=== PATIENT | male | born 1985 ===

== ENCOUNTER 2017-01-01 14:41 | Emergency (ER) | payer MEDICAID, OTHER ==
[2017-01-01 14:56] VITALS: BP 120/77; PULSE 64; RESP 18; TEMP 97.8; O2SAT 99
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
--- NOTE | 2017-01-01 16:55 | RAD ---
HISTORY: direct injury via fall on stairs COMPARISON: No prior. FINDINGS: BONES: Alignment maintained. No fracture. DISC SPACES: Normal. SOFT TISSUES: Normal. OTHER FINDINGS: None. IMPRESSION: No acute findings related to/accounting for the clinical presentation. Please note: No preliminary report/ innterpretation of this examination provided by emergency department personnel.
== END 2017-01-01 17:26 | disposition home or self-care (01) ==
LOC: H.ER 14:41
DX: M54.9 Dorsalgia, unspecified (principal); X50.9XXA Other and unspecified overexertion or strenuous movements or postures, initial encounter; Y92.89 Other specified places as the place of occurrence of the external cause

== ENCOUNTER 2017-08-01 01:15 | Emergency (ER) | payer OTHER ==
--- NOTE | 2017-08-01 02:36 | ED PDOC ---
HPI: Psych/Substance Abuse Time Seen by Provider: 08/01/17 01:25 Chief Complaint (Nursing): Psychiatric Evaluation Chief Complaint (Provider): Psychiatric Evaluation History Per: Patient History/Exam Limitations: no limitations Onset/Duration Of Symptoms: Hrs Current Symptoms Are (Timing): Still Present Suicide/Self Injury Attempted (Context): None Modifying Factor(s): Alcohol Severity: None Associated Symptoms: Anxiety, Agitation Additional Complaint(s): 32 year old male with unspecified psychiatric history brought to the ED by [place] police after being found sleeping on the stoop outside his family's home. Patient admits to drinking but presents with no other complaints. Denies suicidal ideation and homicidal ideation. Past Medical History Reviewed: Historical Data, Nursing Documentation, Vital Signs - Medical History PMH: Asthma - Surgical History Surgical History: No Surg Hx - Family History Family History: States: Unknown Family Hx - Home Medications Home Medications: Ambulatory Orders Medication Instructions Recorded Cyclobenzaprine [Cyclobenzaprine 10 mg PO Q8 PRN #30 tab 01/07/16 HCl] Naproxen [Naprosyn] 500 mg PO BID PRN #30 tab 01/07/16 Cyclobenzaprine [Cyclobenzaprine 10 mg PO BID #14 tab 01/01/17 HCl] Ibuprofen [Motrin] 400 mg PO Q6 #30 tab 01/01/17 - Allergies Allergies/Adverse Reactions: Allergies Allergy/AdvReac Type Severity Reaction Status Date / Time shellfish derived Allergy RASH Verified 01/01/17 15:55 Review of Systems ROS Statement: Except As Marked, All Systems Reviewed And Found Negative Psych: Positive for: Other (Agitated) Physical Exam - Reviewed Nursing Documentation Reviewed: Yes Vital Signs Reviewed: Yes - Physical Exam Appears: Positive for: Non-toxic, No Acute Distress Head Exam: Positive for: ATRAUMATIC, NORMOCEPHALIC Skin: Positive for: Normal Color, Warm, Dry Eye Exam: Positive for: Normal appearance, EOMI, PERRL Neck: Positive for: Normal, Painless ROM, Supple Cardiovascular/Chest: Positive for: Regular Rate, Rhythm. Negative for: Murmur Respiratory: Positive for: Normal Breath Sounds. Negative for: Respiratory Distress Gastrointestinal/Abdominal: Positive for: Normal Exam, Soft. Negative for: Tenderness Back: Positive for: Normal Inspection. Negative for: L CVA Tenderness, R CVA Tenderness, Vertebral Tenderness Extremity: Positive for: Normal ROM. Negative for: Pedal Edema, Deformity Neurologic/Psych: Positive for: Alert, Oriented, Mood/Affect (anxious and agitated). Negative for: Motor/Sensory Deficits Medical Decision Making Medical Decision Making: Time: 0120 A/P: Patient with psychiatric disorder presenting with agitation -- Patient is redirectable. Not homicidal or suicidal at this moment -- Able to achieve de-escalation -- Doesn't require acute intervention -- Patient is stable for discharge Scribe Attestation: Documented by Telma Ventura, acting as a scribe for Dr. Ez Hanson MD. Provider Scribe Attestation: All medical record entries made by the Scribe were at my direction and personally dictated by me. I have reviewed the chart and agree that the record accurately reflects my personal performance of the history, physical exam, medical decision making, and the department course for this patient. I have also personally directed, reviewed, and agree with the discharge instructions and disposition. Disposition - Clinical Impression Clinical Impression: Normal exam - Disposition Disposition: Routine/Home Disposition Time: 01:20 Condition: STABLE Forms: [employer] (Serbian)
== END 2017-08-01 01:45 | disposition home or self-care (01) ==
LOC: H.ER 01:15
DX: Z00.00 Encounter for general adult medical examination without abnormal findings (principal)